=== PATIENT | male | born 1965 | race African-American/Black ===

== ENCOUNTER 2025-05-18 18:27 | Emergency (ER) | payer OTHER ==
[2025-05-18] MEDS ORDERED: Acetaminophen 500 MG TAB ONE (20:13)
[2025-05-18] MEDS ORDERED: Azithromycin 250 MG TAB ONE (21:09)
== END 2025-05-18 21:25 | disposition home or self-care (01) ==
LOC: MADERS 18:27
DX: S22.20XA Unspecified fracture of sternum, initial encounter for closed fracture (principal); S80.02XA Contusion of left knee, initial encounter; J18.9 Pneumonia, unspecified organism; M79.81 Nontraumatic hematoma of soft tissue; V89.2XXA Person injured in unspecified motor-vehicle accident, traffic, initial encounter; W22.10XA Striking against or struck by unspecified automobile airbag, initial encounter
CPT/HCPCS: 71250

== ENCOUNTER 2025-05-25 12:25 | Emergency (ER) | payer OTHER | END 2025-05-25 14:29 | disposition home or self-care (01) | LOC: MADERS 12:25 | DX: S82.142A Displaced bicondylar fracture of left tibia, initial encounter for closed fracture (principal); V89.2XXA Person injured in unspecified motor-vehicle accident, traffic, initial encounter | CPT/HCPCS: 99284 ==